=== PATIENT | male | born 1955 | race Caucasian/White ===

== ENCOUNTER → 2021-09-02 10:33 | Outpatient (CLI) | payer MEDICARE, BC, SELFPAY ==
--- NOTE | 2021-09-02 10:35 | DI.US.S_ITS ---
PROCEDURE: US SCROTUM INDICATIONS: SCROTAL SWELLING TECHNIQUE: Real-time scanning was performed of the scrotum and testicles, with image documentation. Color and pulse Doppler interrogation was performed of both testicles. COMPARISON: None. FINDINGS: Right: Testicle is normal in size at 4.8 x 2.1 x 2.6 cm, and homogenous in echotexture. Epididymis appears to be replaced by multiple cysts measures up to 1.7 x 1.6 x 2.4 cm in size. No hydrocele or varicoceles. Overlying scrotal skin is normal in thickness. Small rete testes is seen. Left: Testicle is normal in size at 3.8 x 2.4 x 2.7 cm, and homogeneous in echotexture. Epididymis appears to be replaced by multiple cysts measures up to 5.3 x 2.6 x 4.9 cm in size. No hydrocele or varicoceles. Overlying scrotal skin is normal in thickness. Rete testes is noted on the left side more prominent compared to right side with a 7 x 4 x 8 mm cyst seen. Doppler: Color and pulse Doppler demonstrate normal and symmetric arterial flow in both testicles. IMPRESSION: 1. No evidence of testicular torsion. No discrete testicular lesion. Bilateral rete testis is seen more prominent on the left side as above. No no hydrocele or varicocele. 2. Cystic replacement of normal epididymal parenchyma as described above. Dictated by: Eric Toth M.D. on 09/02/2021 at 14:18 Approved by: Eric Toth M.D. on 09/02/2021 at 14:20
[2021-09-02 12:34] LABS: Add Manual Diff / Slide Review NO; Basophils Absolute Auto 100 /uL (0-100); Eosinophils Absolute Auto 200 /uL (0-450); Eosinophils Percent Auto 4.9 % (2-4); Hemoglobin 14.5 g/dL (13.5-17.5); Lymphocytes Absolute Auto 1400 /uL (1100-4500); Lymphocytes Percent Auto 28.1 % (25-40); Mean Corpuscular HGB Conc 33.8 % (30-36); Mean Corpuscular Hemoglobin 30.2 PG (26-34); Mean Corpuscular Volume 89.3 fL (80-100); Monocytes Absolute Auto 300 /uL (0-900); Monocytes Percent Auto 5.5 % (3-14); Neutrophils Absolute Auto 3100 /uL (1500-7000); Neutrophils Percent Auto 60.5 % (50-75); Platelet Count 284 X10^3/uL (150-400); Red Blood Cell Count 4.81 X10^6/uL (4.5-5.9); White Blood Cell Count 5.1 X10^3/uL (4.5-11.0)
[2021-09-02 13:02] LABS: Alanine Aminotransferase 20 IU/L (<50); Albumin 4.7 g/dL (3.5-5.0); Albumin Globulin Ratio 1.9 (1.0-2.8); Alkaline Phosphatase 53 U/L (38-126); Aspartate Aminotransferase 21 IU/L (17-59); BUN Creatinine Ratio 13.2 (6-22); Bilirubin Total 0.9 mg/dL (0.2-1.3); Blood Urea Nitrogen 12 mg/dL (9-20); Calcium 9.4 mg/dL (8.4-10.2); Carbon Dioxide 29 mmol/L (22-32); Chloride 103 mmol/L (98-107); Cholesterol 205 mg/dL (140-199); Estimated Glomerular Filt Rate > 60.0 mL/min (>60); Globulin 2.5 g/dL (1.7-4.1); Glucose 93 mg/dL (80-110); HDL Cholesterol 60 mg/dL (40-60); HEMOLYSIS < 15 (0-50); LDL Cholesterol Calculated 114 mg/dL (<100); Potassium 4.4 mmol/L (3.4-5.1); Sodium 140 mmol/L (137-145); Total Protein 7.2 g/dL (6.3-8.2); Triglycerides 153 mg/dL (35-150)
[2021-09-02 13:20] LABS: Appearance Urine UA CLEAR; Bilirubin Urine UA NEGATIVE (NEGATIVE); Color Urine UA YELLOW; Glucose Urine UA NEGATIVE (Negative); Ketones Urine UA NEGATIVE (NEGATIVE); Leukocyte Esterase Urine UA NEGATIVE (NEGATIVE); Nitrite Urine UA NEGATIVE (Negative); Occult Blood Urine UA NEGATIVE (Negative); Protein Urine UA NEGATIVE (Negative); Urobilinogen Urine UA 0.2 E.U./dL (0.2); pH Urine UA 7.5 (4.5-8.0)
[2021-09-02 13:32] LABS: Bacteria Urine None Seen; Culture Indicated Urine Cult Not Indicated; RBC Urine None Seen (0-5/HPF); Urine Comments Microscopic Normal; WBC Urine None Seen (0-5/HPF)
[2021-09-02 13:36] LABS: TSH w/ Reflex to FT4 1.64 uIU/mL (0.47-4.68)
[2021-09-02 13:51] LABS: Vitamin B12 Reflex MMA if <400 553 pg/mL (239-931)
== END ==
PROVIDERS: PCP Family Medicine; Referring Provider Family Medicine; Visit Provider Family Medicine
DX: N49.2 Inflammatory disorders of scrotum (principal); N50.819 Testicular pain, unspecified; N50.3 Cyst of epididymis; E78.5 Hyperlipidemia, unspecified; R41.3 Other amnesia; G47.9 Sleep disorder, unspecified
CPT/HCPCS: 36415; 76870; 80053; 80061; 81001; 82607; 84443; 85025

== ENCOUNTER → 2022-03-20 09:15 | Outpatient (CLI) | payer MEDICARE, BC, SELFPAY ==
[2022-03-20 10:36] LABS: COVID19 -Nasal RAPID Negative (Negative)
== END ==
PROVIDERS: PCP Family Medicine; Visit Provider Surgery
DX: Z20.822 Contact with and (suspected) exposure to COVID-19 (principal); Z01.812 Encounter for preprocedural laboratory examination
CPT/HCPCS: 87635; C9803

== ENCOUNTER → 2022-05-28 15:54 | Outpatient (CLI) | payer MEDICARE, BC, SELFPAY ==
[2022-05-28 17:05] LABS: COVID19 -Nasal RAPID Negative (Negative)
== END ==
PROVIDERS: PCP Family Medicine; Visit Provider Urology
DX: N43.40 Spermatocele of epididymis, unspecified (principal); R31.0 Gross hematuria; N50.89 Other specified disorders of the male genital organs; K40.90 Unilateral inguinal hernia, without obstruction or gangrene, not specified as recurrent; R10.31 Right lower quadrant pain; Z20.822 Contact with and (suspected) exposure to COVID-19
CPT/HCPCS: 87635; 99214

== ENCOUNTER 2022-05-29 12:30 | Day surgery (SDC) | payer MEDICARE, BC, SELFPAY ==
[2022-05-28 07:51] VITALS: BMI 23.0
[2022-05-29] VITALS (7 sets, daily range): BP systolic 125–138; BP diastolic 70–88; PULSE 70–92; RESP 13–16; TEMP 36.3–37.3; O2SAT 92–98; BMI 23.1
--- NOTE | 2022-05-29 | PATH_ITS ---
[facility] Accession Number: [id number] . 01 Material submitted: . spermatic cord - LEFT SPERMATOCELE SAC . 01 Clinical history: . LEFT SPERMATOCELECTOMY / OPEN RIH REPAIR . 01 Diagnosis: Left Spermatocele Sac, Excision: Consistent with spermatocele. No evidence of neoplasm. MRV 06/02/2022 0831 Local . 01 Electronically signed: . Loco Mena MD, PhD, Pathologist NPI- [id number] . 01 Gross description: . Received in formalin, labeled with the patient's name and left spermatocele sac, and consists of two georges, membranous, translucent soft tissue fragments aggregating to 2.2 x 1.8 x 0.5 cm. The tissue fragments are smooth-walled with no excrescences or thickened identified. The specimen is submitted entirely in cassettes A1-A2. ([id number]) /FRR 05/30/2022 1133 Local . 01 Pathologist provided ICD-10: N43.40 . 01 CPT . 541885 Specimen Comment: A courtesy copy of this report has been sent to [phone] Performed at: 01 [facility] [address] [place] [address] [address], [place], [place] [id number] MD Stewart Duran MD Phone: [phone]
[2022-05-29] MEDS: LACTATED RINGERS 1,000 ML 42 ML IV (13:23)
--- NOTE | 2022-05-29 13:36 | PM.PREOP ---
Pre-operative Note COVID-19 Result date/Date tested (Pos, Neg/Pending): 05/28/22 Criteria for continued procedure: Delay expected to result in less-positive ultimate med/surg outcome and Non-surgical alternatives not available or appropriate per current SOC Interval Note History & Physical reviewed/Exam performed by Physician: Yes Changes to H&P: No
--- NOTE | 2022-05-29 15:18 | PM.HP.1 ---
History of Present Illness History of Present Illness Date Patient Seen: 05/29/22 Chief complaint: LEFT SPERMATOCELECTOMY & OPEN RIH REPAIR Narrative: 67-year-old man here for a elective open right inguinal hernia repair. No interval changes in health. Please refer to H&P from December 2021 for further detail. Patient History Medical History ADHD (attention deficit hyperactivity disorder) (~1954) Anesthesia Chicken pox (~1965) Chronic cough (~1954) Depression (~1954) Discomfort of right groin GERD (gastroesophageal reflux disease) Headache, migraine Hemorrhoid (~1999) History of squamous cell carcinoma of skin (~1989) Hyperlipidemia Low back pain Measles (~1963) Mumps (~1964) Neoplasm of uncertain behavior of skin Right inguinal hernia Right knee pain Scrotal sac enlargement Sleep apnea (~1997) Sleep disorder Spermatocele of epididymis TIA (transient ischemic attack) Vision disorder Surgical History Anesthesia History of inguinal hernia repair (~1983) History of knee surgery (~1965) History of tonsillectomy (~1964) S/P ACL repair (~2012) Family & Social History Family History Father Hypertension Mother Cancer Grandfather Diabetes mellitus History of heart disease Grandmother History of heart disease Grandfather History of heart disease Hyperlipidemia Hypertension Grandmother History of heart disease Social History: household members spouse Tobacco & Substance use: Smoking Status Never smoker alcohol intake current alcohol intake frequency 0-2 drinks per day Substance Use Type marijuana Meds Home Medications and Allergies Home Medications Medication Instructions Recorded Confirmed Type azelastine 137 mcg (0.1 %) nasal 1 spray intranasal BID 08/19/21 05/29/22 History spray aerosol cholecalciferol (vitamin D3) 50 50 mcg PO DAILY 08/19/21 05/29/22 History mcg (2,000 unit) capsule finasteride 1 mg tablet 1 mg PO DAILY #90 tabs 08/19/21 05/29/22 Rx fluticasone furoate 100 1 inh inhalation DAILY 08/19/21 05/28/22 History mcg/actuation blister powder for inhalation minoxidil 5 % topical foam See Rx Instructions .Route .COMPLEX 08/19/21 05/29/22 History multivitamin 1 tab PO DAILY 08/19/21 05/29/22 History zolpidem 10 mg tablet (Ambien) PO PRN insomnia 08/19/21 05/28/22 History rosuvastatin 20 mg tablet (Crestor) 20 mg PO DAILY #90 tabs 04/23/22 05/28/22 Rx esomeprazole magnesium 20 mg 20 mg PO DAILY 05/28/22 05/29/22 History capsule,delayed release oxycodone 5 mg tablet 5 mg PO Q4H PRN pain #30 tabs 05/28/22 05/29/22 Rx Prilosec See Rx Instructions .Route .COMPLEX 05/29/22 05/29/22 History rosuvastatin 20 mg tablet 20 mg PO 0800 05/29/22 05/29/22 History Allergies Allergy/AdvReac Type Severity Reaction Status Date / Time No Known Drug Allergies Allergy Verified 05/29/22 13:07 Exam Vital Signs (past 8 hours): - 05/29/22 13:24 Temperature 97.3 F L Pulse Rate 70 Respiratory Rate 16 Blood Pressure 135/77 Pulse Oximetry 98 Oxygen Delivery Method Room Air Oxygen Delivery Method Room Air Narrative Exam Narrative: General adult man alert oriented no acute distress Abdomen right inguinal hernia marked with my initials. Assessment & Plan Assessment and plan (1) Right inguinal hernia: Status: Acute Assessment & Plan narrative: 67-year-old man with a symptomatic right inguinal hernia here for elective open hernia repair. Over the operation was again discussed with the patient. Operative risks including bleeding, infection, recurrence, chronic pain damage to surrounding structures were discussed. His questions have been answered and he is in agreement with this plan. Time Spent With Patient Critical Care time: I spent a total of [] minutes of critical care time on this patient's care today; this time is exclusive of procedural time.
[2022-05-29] MEDS: CEFAZOLIN 2 GM/100 ML PREMIX 100 ML IV (15:45)
--- NOTE | 2022-05-29 15:52 | SUR.OPER ---
Patients cell phone and glasses placed in his belongings bag in pre-op area.
--- NOTE | 2022-05-29 16:05 | SUR.OPER ---
Supine on padded OR bed, head on pillow, arms secured on padded arm boards at <90 degrees abduction, legs uncrossed, safety belt at thigh, tape over blanket over lower legs.
[2022-05-29] MEDS: BACITRACIN 28 GM OINT 1 APPLIC TOP (17:00)
--- NOTE | 2022-05-29 17:07 | PM.OP.1 ---
Procedure & Clinicians Procedure: Left spermatocelectomy and flexible cystoscopy Same procedure as scheduled: Yes Indications: This is a very pleasant 67-year-old gentleman who has a left spermatocele had gross hematuria and has a right inguinal hernia. He presents this time for flexible cystoscopy, left spermatocelectomy and right inguinal hernia. The right inguinal hernia repair is to be done by Dr. Escobar and will be dictated under separate cover. Surgeon: Alexy Ac Click Yes if Unassisted: Yes Anesthesia Type: General Operative Notes Findings: At cystoscopy refill meatus was normal urethra is normal along its length. The sphincter was well coapted and the prostate showed moderate obstructive character. The ureteral orifices were normal position with clear efflux. The mucosa of the bladder was normal without papillary lesion fistula or other abnormality. There were no stones within the bladder. And no distinct cause for his gross hematuria was noted. At spermatocele ectomy. There there were actually 2 separate spermatoceles. One was bilobed and 1 was a single cyst. They contained fluid as would be expected clear to milky white fluid and no other significant abnormality was noted. Testis and cord structures were normal. The spermatoceles were removed in their entirety. Closure Type: primary Specimen(s): other (Spermatocele sac) Estimated Blood Loss (mL): 5 Procedure in detail: Procedure in detail: After informed consent was obtained, the patient was identified and brought to the operating room. He was then placed in the supine position on the table where anesthesia was induced to maintain. After adequate level of anesthesia the patient was shaved, prepped, draped and prepared for flexible cystoscopy and left spermatocelectomy. After prepping draping and ensuring an adequate level of anesthesia the flexible cystoscope was passed through the urethra prostate into the bladder under direct vision. Cystoscopy was performed including a retroflex maneuver. With the findings in hand the scope was removed and an 18 Sammarinese Martines catheter was passed into the bladder in the bladder was drained. At this point a transverse incision was made in the left hemiscrotum and carried down to the layers the dartos. The testis and spermatoceles were then delivered. The most inferior aspect of the spermatocele was opened and the sac teased off of the investing tissues. This was taken down and again became apparent was separate from another more cephalad bilobed spermatocele which then was dissected free from its investing tissues dissecting off parts of the epididymis and some blood vessels. This was taken down to its junction with the another portion of the epididymis. The base of the 1st spermatocele was tied off with a 2-0 Vicryl. And the sac excised this was then repeated on the 2nd spermatocele with a 2-0 2-0 Vicryl and the sac was excised. The investing layers were then reapproximated with a running 3-0 chromic. Points of bleeding were controlled with electrocautery. The cord was infiltrated with 0.25% plain Marcaine in the testis returned to the scrotum. The dartos was reapproximated with a running 2 0 Vicryl. The skin edges were infiltrated with 0.25% plain Marcaine and the skin it is reapproximating with interrupted vertical mattress of 2-0 chromic gut suture. The wound was cleaned bacitracin Telfa was applied gauze was applied and the patient was undraped. The patient then went on to be re-prepped and draped for right inguinal hernia and this will be dictated under separate cover by Dr. Escobar. Patient tolerated the procedure well and there were no complications. The patient will be dressed with bacitracin Telfa fluffs and scrotal support. Patient will follow-up in my office and proximally 10 days again there were no complications Complications: none Post-operative Condition: stable Disposition: other (Patient remained under general anaesthesia and went on to have right inguinal hernia repair.) Plan for aftercare: Patient is to be discharged to home and follow up my office in approximately 10 days
[2022-05-29] MEDS: BUPIVACAINE 0.25% (PF) VIAL 30 ML INJ (17:42)
--- NOTE | 2022-05-29 17:43 | SUR.OPER ---
Dr. Ac procedure ended at 170. patient re-prepped and draped sterile. Dr. Escobar procedure timeout at 1711 performed with OR team members lead by yadi Jay RN and procedure start time was 171.
--- NOTE | 2022-05-29 18:33 | PM.OP.1 ---
Operative Date/Time/Diagnoses Date of procedure: 05/29/22 Time of procedure: 18:33 Pre-op diagnosis: Right inguinal hernia Post-op diagnosis: same Procedure & Clinicians Procedure: Open right inguinal hernia repair with mesh Same procedure as scheduled: Yes Indications: Symptomatic reducible right inguinal hernia Surgeon: Arturo Juarez Yes if Unassisted: Yes Anesthesia Type: General Operative Notes Findings: direct floor inguinal hernia containing omentum. Small cord lipoma Specimen(s): none sent Estimated Blood Loss (mL): 20 Procedure in detail: The patient was placed supine on the table and bilateral lower extremity compression devices were applied. Anesthesia was induced they were intubated with an LMA and received Ancef. A time-out was performed. They were prepped and draped in sterile fashion. Dr. Ac then performed a left spermatocele repair. The right external inguinal ring and the anterior superior iliac crest were identified and marked. 1 finger breath above the inguinal ligament the skin was infiltrated with 0.25% bupivacaine. The skin incision was made here and the subcutaneous tissues were divided with electrocautery exposing the external oblique aponeurosis which was then opened along the direction of its fibers. Using blunt dissection the internal oblique aporneurosis was from the external oblique upper leaflet. Using a kittner the cord was carefully dissected away from the inguinal canal adjacent to the pubic tubercle. The cord including the vas deferens, testicular bloody supply, ilioguinal and genital nerve were encircled with a Rica drain. A large direct floor defect containing omentum was identified and it was reduced into the abdomen and the internal oblique aporneuorsis was approximated to the inguinal ligament with Ethibond suture to reapproximate the floor over a plug of mesh. The cremasteric fibers surrounding the cord were divided using electrocautery adjacent to the internal ring.. The vas deferens and the testicular vessels were preserved and protected. There was a small cord lipoma which was resected, there was no indirect hernia. I selected a 7x 15 cm lightweight Pro Loop hernia mesh. The inferior medial aspect of the mesh was anchored to insertion of the rectus muscle to the pubic tubercle such that there was approximately 2 cm of tubercle overlap with Ethibond and then was run continuously along the inferior edge of the mesh to the shelving edge of the inguinal ligament. Interrupted 3 0 Vicryl suture was used to anchor the superior aspect of the mesh to the conjoined tendon in several places. The tails were then reapproximated loosely around the spermatic cord. The tails of the mesh were then tucked under the external oblique aponeurosis. The repair was checked for hemostasis. The wound was irrigated with sterile saline. The external oblique aponeurosis was reapproximated in a running fashion using 3 0 Vicryl. The subcutaneous tissues were reapproximated with 3 0 Vicryl skin closed with 4 0 Monocryl followed by the application of Dermabond. At the end of the operation I ensured that both testicles were within the scrotum. The sponge instrument count at the end operation was correct. The patient emerged from anesthesia was extubated and transferred to the postoperative care unit in stable condition. Complications: none Post-operative Condition: stable Disposition: same day surgery
--- NOTE | 2022-05-29 19:13 | SUR.PHASEII ---
1900:Pt A&Ox4 denies any distress, dressings c/d/i, and ready to discharge home. Discharge instructions reviewed with patient and spouse in length, and both verbalize know how to get help if needed, written instructions given. IV DC'd intact, pt handoff to spouse who will transport pt home.
== END 2022-05-29 19:00 | disposition home or self-care (01) ==
PROVIDERS: Urology; PCP Family Medicine; Referring Provider Surgery; Visit Provider Surgery
PROC: 0TJB8ZZ Inspection of Bladder, Via Natural or Artificial Opening Endoscopic (ICD-10-PCS; CPT 52000; principal; 2022-05-29 14:15)
PROC: (CPT 49505; 2022-05-29 14:15)
PROC: (CPT 54840; 2022-05-29 14:15)
DX: K40.90 Unilateral inguinal hernia, without obstruction or gangrene, not specified as recurrent (principal); N43.40 Spermatocele of epididymis, unspecified; G47.33 Obstructive sleep apnea (adult) (pediatric); D17.6 Benign lipomatous neoplasm of spermatic cord
CPT/HCPCS: 49505; 54840; 82962; J0690; J1100; J2250; J2405; J2704; J3010

== ENCOUNTER → 2022-11-16 10:18 | Outpatient (CLI) | payer MEDICARE, BC, SELFPAY ==
[2022-11-16 10:58] LABS: Add Manual Diff / Slide Review NO; Basophils Absolute Auto 100 /uL (0-100); Basophils Percent Auto 1.1 % (0-2); Eosinophils Absolute Auto 200 /uL (0-450); Eosinophils Percent Auto 4.1 % (2-4); Hematocrit 42.3 % (41-53); Hemoglobin 14.1 g/dL (13.5-17.5); Lymphocytes Absolute Auto 1600 /uL (1100-4500); Lymphocytes Percent Auto 29.6 % (25-40); Mean Corpuscular HGB Conc 33.4 % (30-36); Mean Corpuscular Hemoglobin 29.3 PG (26-34); Mean Corpuscular Volume 87.5 fL (80-100); Monocytes Absolute Auto 400 /uL (0-900); Monocytes Percent Auto 7.5 % (3-14); Neutrophils Absolute Auto 3100 /uL (1500-7000); Neutrophils Percent Auto 57.7 % (50-75); Platelet Count 219 X10^3/uL (150-400); Red Blood Cell Count 4.83 X10^6/uL (4.5-5.9); Red Cell Distribution Width 13.7 % (11.6-14.8); White Blood Cell Count 5.4 X10^3/uL (4.5-11.0)
[2022-11-16 11:19] LABS: Alanine Aminotransferase 22 IU/L (<50); Albumin 4.2 g/dL (3.5-5.0); Albumin Globulin Ratio 1.7 (1.0-2.8); Alkaline Phosphatase 54 U/L (38-126); Aspartate Aminotransferase 20 IU/L (17-59); BUN Creatinine Ratio 23.1 (6-22); Bilirubin Total 0.7 mg/dL (0.2-1.3); Blood Urea Nitrogen 18 mg/dL (9-20); Carbon Dioxide 29 mmol/L (22-32); Chloride 105 mmol/L (98-107); Cholesterol 181 mg/dL (140-199); Estimated Glomerular Filt Rate > 60 mL/min (>60); Globulin 2.5 g/dL (1.7-4.1); Glucose 94 mg/dL (80-110); HDL Cholesterol 56 mg/dL (40-60); HEMOLYSIS < 15 (0-50); LDL Cholesterol Calculated 105 mg/dL (<100); Potassium 4.4 mmol/L (3.4-5.1); Sodium 139 mmol/L (137-145); Total Protein 6.7 g/dL (6.3-8.2); Triglycerides 98 mg/dL (35-150)
[2022-11-16 11:48] LABS: Prostate Specific Antigen Scrn 0.578 ng/mL (0.1-4.0)
== END ==
PROVIDERS: PCP Family Medicine; Referring Provider Family Medicine; Visit Provider Family Medicine
DX: Z00.00 Encounter for general adult medical examination without abnormal findings (principal); E78.2 Mixed hyperlipidemia; Z12.5 Encounter for screening for malignant neoplasm of prostate
CPT/HCPCS: 36415; 80053; 80061; 85025; G0103

== ENCOUNTER → 2022-12-29 19:03 | Outpatient (CLI) | payer MEDICARE, BC, SELFPAY | PROVIDERS: PCP Family Medicine; Visit Provider Student in an Organized Health Care Education/Training Program | DX: S90.859A Superficial foreign body, unspecified foot, initial encounter (principal) | CPT/HCPCS: 87070; 87075; 87147; 87205 ==

== ENCOUNTER → 2023-07-07 15:01 | Outpatient (CLI) | payer MEDICARE, OTHER, SELFPAY ==
--- NOTE | 2023-07-07 15:03 | DI.RAD.S_ITS ---
PROCEDURE: XR LUMBAR SPINE MIN 4V INDICATIONS: right side low back pain x 4 weeks TECHNIQUE: Three views of the lumbar spine. COMPARISON: None. FINDINGS: Bones: 5 nonrib-bearing vertebrae are present. There is normal bony alignment. No vertebral body compression fractures. No suspicious bony lesions. Moderate disc height loss at L4-5. Mild disc height loss at remaining levels. Soft tissues: Overlying bowel gas pattern is normal. No suspicious soft tissue calcifications. IMPRESSION: Mild to moderate, multilevel degenerative disc disease. Dictated by: Murali Grace M.D. on 07/07/2023 at 15:50 Approved by: Murali Grace M.D. on 07/07/2023 at 15:51
== END ==
PROVIDERS: PCP Family Medicine; Referring Provider Physician Assistant; Visit Provider Physician Assistant
DX: M51.36 Other intervertebral disc degeneration, lumbar region (principal); M54.50 Low back pain, unspecified
CPT/HCPCS: 72110

== ENCOUNTER → 2023-12-28 10:18 | Outpatient (CLI) | payer MEDICARE, OTHER, SELFPAY ==
[2023-12-28 10:54] LABS: Add Manual Diff / Slide Review NO; Basophils Absolute Auto 100 /uL (0-100); Basophils Percent Auto 0.9 % (0-2); Eosinophils Absolute Auto 200 /uL (0-450); Eosinophils Percent Auto 3.3 % (2-4); Hematocrit 42.4 % (41-53); Hemoglobin 14.4 g/dL (13.5-17.5); Lymphocytes Absolute Auto 1500 /uL (1100-4500); Lymphocytes Percent Auto 27.6 % (25-40); Mean Corpuscular HGB Conc 33.9 % (30-36); Mean Corpuscular Hemoglobin 29.6 PG (26-34); Mean Corpuscular Volume 87.2 fL (80-100); Monocytes Absolute Auto 400 /uL (0-900); Monocytes Percent Auto 7.4 % (3-14); Neutrophils Absolute Auto 3400 /uL (1500-7000); Neutrophils Percent Auto 60.8 % (50-75); Platelet Count 225 X10^3/uL (150-400); Red Blood Cell Count 4.86 X10^6/uL (4.5-5.9); Red Cell Distribution Width 13.1 % (11.6-14.8); White Blood Cell Count 5.6 X10^3/uL (4.5-11.0)
[2023-12-28 11:18] LABS: Alanine Aminotransferase 22 IU/L (<50); Albumin 4.4 g/dL (3.5-5.0); Albumin Globulin Ratio 1.6 (1.0-2.8); Alkaline Phosphatase 55 U/L (38-126); Aspartate Aminotransferase 24 IU/L (17-59); BUN Creatinine Ratio 20.9 (6-22); Bilirubin Total 1.1 mg/dL (0.2-1.3); Blood Urea Nitrogen 19 mg/dL (9-20); Calcium 9.2 mg/dL (8.4-10.2); Carbon Dioxide 28 mmol/L (22-32); Chloride 109 mmol/L (98-107); Cholesterol 189 mg/dL (140-199); Estimated Glomerular Filt Rate > 60 mL/min (>60); Globulin 2.8 g/dL (1.7-4.1); Glucose 89 mg/dL (80-110); HDL Cholesterol 52 mg/dL (40-60); HEMOLYSIS < 15 (0-50); LDL Cholesterol Calculated 93 mg/dL (<100); Potassium 4.2 mmol/L (3.4-5.1); Sodium 140 mmol/L (137-145); Total Protein 7.2 g/dL (6.3-8.2); Triglycerides 220 mg/dL (35-150)
[2023-12-28 11:48] LABS: Prostate Specific Antigen Scrn 0.742 ng/mL (0.1-4.0)
[2023-12-28 11:50] LABS: TSH w/ Reflex to FT4 2.05 uIU/mL (0.47-4.68)
[2023-12-28 13:30] LABS: Creatinine Urine Random 187.5 mg/dL
[2023-12-28 13:32] LABS: Microalbumi Creatinin Ratio Ur 4.2 ug/mg CR (<30); Microalbumin Urine Random 0.8 mg/dL (0-1.6)
[2023-12-29 09:16] LABS: Apolipoprotein B 104 mg/dL (<90)
== END ==
PROVIDERS: PCP Family Medicine; Referring Provider Family Medicine; Visit Provider Family Medicine
DX: Z00.00 Encounter for general adult medical examination without abnormal findings (principal); E78.5 Hyperlipidemia, unspecified; Z12.5 Encounter for screening for malignant neoplasm of prostate; G47.30 Sleep apnea, unspecified; M54.50 Low back pain, unspecified
CPT/HCPCS: 36415; 80053; 80061; 82043; 82172; 82570; 84443; 85025; G0103

== ENCOUNTER 2024-02-18 13:26 | Day surgery (SDC) | payer MEDICARE, OTHER, SELFPAY ==
--- NOTE | 2024-02-18 | PATH_ITS ---
[facility] Accession Number: [id number] No. of containers..01 Tissue . 01 Material submitted: . esophagus, E-G Junction - GE JUNCTION . 01 Diagnosis: GE JUNCTION: Gastroesophageal junction mucosa with mild chronic inflammation. No goblet cell metaplasia, dysplasia, or malignancy identified. [facility] 02/25/2024 1112 Local . 01 Electronically signed: . Stewart Duran MD, Pathologist NPI- [id number] . 01 Gross description: . Received in formalin with two identifiers and GE junction, are two georges soft tissue fragments, 0.4 cm each in greatest dimension. Submitted in A1. ([id number]) /MRV 02/25/2024 1112 Local . 01 Pathologist provided ICD-10: K20.90 . 01 CPT . 723822 Specimen Comment: A courtesy copy of this report has been sent to [phone] Performed at: 01 [facility] [address] [place] [address], [place], [place] [id number] MD Stewart Duran MD Phone: [phone]
[2024-02-18] MEDS: LACTATED RINGERS 1,000 ML 42 ML IV (14:08)
[2024-02-18 14:14] VITALS: BP 120/66; PULSE 67; RESP 18; TEMP 36.3; O2SAT 97
--- NOTE | 2024-02-18 14:20 | PM.PREOP ---
Pre-operative Note Interval Note History & Physical reviewed/Exam performed by Physician: Yes Changes to H&P: No
[2024-02-18 14:40] VITALS: BP 101/62; PULSE 77; RESP 19; TEMP 36.6; O2SAT 92
--- NOTE | 2024-02-18 14:43 | P.OP.EGD_ITS ---
Operative Date/Time/Diagnoses Date of procedure: 02/18/24 Time of procedure: 14:43 Pre-op diagnosis: GERD Procedure & Clinicians Study performed: Esophagogastroduodenoscopy Same procedure as scheduled: Yes Indications: Chronic GERD Surgeon: Arturo Escobar Procedure Notes Procedure in detail: The history and physical was performed/updated and the patient is ASA class is 2. The procedure was discussed in detail with the patient. Potential risks complications including infection, bleeding, missed diagnosis, perforation, need for surgery, and were explained. Their questions were answered and informed consent was obtained. Patient placed in left lateral decubitus position. Time out was performed. Procedural sedation was administered by Anesthesia. A bite block was placed. the scope was inserted into the mouth and advanced through the esophagus and i nto the stomach. The pylorus was intubated and the duodenum was examined to the 2nd portion. The scope was then withdrawn into the stomach and was retroflexed. The stomach was decompressed and scope was withdrawn slowly through the esophagus. FINDINGS -mild gastritis -no overt signs of Rivera's esophagus. -biopsy of the GE junction at 38 cm performed with forceps. The patient tolerated the procedure well and will be discharged when they meet criteria. Specimen(s): other (GE junction) Impression: Normal upper endoscopy Post-procedure Plan for aftercare: We will notify with biopsy results Continue Nexium as written Disposition: same day surgery
[2024-02-18 14:45] VITALS: BP 106/73; PULSE 69; RESP 12; O2SAT 96
[2024-02-18 14:51] VITALS: BP 119/75; PULSE 77; RESP 14; O2SAT 95
[2024-02-18 14:56] VITALS: BP 123/71; PULSE 74; RESP 18; O2SAT 96
== END 2024-02-18 15:07 | disposition home or self-care (01) ==
PROVIDERS: PCP Family Medicine; Referring Provider Surgery; Visit Provider Surgery
PROC: 0DJ08ZZ Inspection of Upper Intestinal Tract, Via Natural or Artificial Opening Endoscopic (ICD-10-PCS; CPT 43239; principal; 2024-02-18 14:15)
DX: K21.9 Gastro-esophageal reflux disease without esophagitis (principal); K29.50 Unspecified chronic gastritis without bleeding
CPT/HCPCS: 43239; J2704

== ENCOUNTER → 2024-03-31 15:47 | Outpatient (CLI) | payer MEDICARE, OTHER, SELFPAY ==
[2024-03-31 17:39] LABS: Alanine Aminotransferase 21 IU/L (<50); Albumin 4.2 g/dL (3.5-5.0); Alkaline Phosphatase 58 U/L (38-126); Aspartate Aminotransferase 21 IU/L (17-59); BUN Creatinine Ratio 18.1 (6-22); Bilirubin Total 0.6 mg/dL (0.2-1.3); Blood Urea Nitrogen 15 mg/dL (9-20); Carbon Dioxide 27 mmol/L (22-32); Chloride 108 mmol/L (98-107); Cholesterol 178 mg/dL (140-199); Estimated Glomerular Filt Rate > 60 mL/min (>60); Globulin 2.1 g/dL (1.7-4.1); Glucose 90 mg/dL (80-110); HDL Cholesterol 55 mg/dL (40-60); HEMOLYSIS < 15 (0-50); LDL Cholesterol Calculated 53 mg/dL (<100); Potassium 4.7 mmol/L (3.4-5.1); Sodium 138 mmol/L (137-145); Total Protein 6.3 g/dL (6.3-8.2); Triglycerides 352 mg/dL (35-150)
[2024-03-31 18:29] LABS: Vitamin B12 524 pg/mL (239-931)
[2024-04-01 08:18] LABS: Apolipoprotein B 90 mg/dL (<90)
[2024-04-01 10:17] LABS: Appearance Urine UA CLEAR; Bilirubin Urine UA NEGATIVE (NEGATIVE); Color Urine UA YELLOW; Glucose Urine UA NEGATIVE (Negative); Ketones Urine UA NEGATIVE (NEGATIVE); Leukocyte Esterase Urine UA NEGATIVE (NEGATIVE); Nitrite Urine UA NEGATIVE (Negative); Occult Blood Urine UA NEGATIVE (Negative); Protein Urine UA NEGATIVE (Negative); Urobilinogen Urine UA 0.2 E.U./dL (0.2)
[2024-04-01 10:33] LABS: Bacteria Urine None Seen; Culture Indicated Urine Cult Not Indicated; RBC Urine 0-1/HPF (0-5/HPF); Squamous Epithelial Cell Urine 0-1 /HPF (0-5/HPF); Urine Volume 10mL (spun); WBC Urine None Seen (0-5/HPF)
== END ==
PROVIDERS: PCP Family Medicine; Referring Provider Family Medicine; Visit Provider Family Medicine
DX: Z00.00 Encounter for general adult medical examination without abnormal findings (principal); E78.2 Mixed hyperlipidemia; R41.3 Other amnesia; R39.9 Unspecified symptoms and signs involving the genitourinary system
CPT/HCPCS: 36415; 80053; 80061; 81001; 82172; 82607

== ENCOUNTER → 2025-01-08 10:55 | Outpatient (CLI) | payer MEDICARE, OTHER, SELFPAY ==
[2025-01-09 09:40] LABS: Rubeola Measles IgG > 300.0 AU/mL (Immune >16.4)
== END ==
PROVIDERS: PCP Family Medicine; Referring Provider Family Medicine; Visit Provider Family Medicine
DX: Z01.84 Encounter for antibody response examination (principal)
CPT/HCPCS: 36415; 86735; 86762; 86765

== ENCOUNTER → 2025-01-13 11:49 | Outpatient (CLI) | payer MEDICARE, OTHER, SELFPAY ==
[2025-01-15 12:08] LABS: Fecal Immunochemical Test Negative (Negative)
== END ==
LOC: LAB 11:50
PROVIDERS: PCP Family Medicine; Referring Provider Family Medicine; Visit Provider Family Medicine
DX: Z12.11 Encounter for screening for malignant neoplasm of colon (principal)
CPT/HCPCS: 82274

== ENCOUNTER → 2025-02-19 08:01 | Outpatient (CLI) | payer MEDICARE, OTHER, SELFPAY ==
[2025-02-19 08:46] LABS: Add Manual Diff / Slide Review NO; Basophils Absolute Auto 0 /uL (0-100); Basophils Percent Auto 0.8 % (0-2); Eosinophils Absolute Auto 200 /uL (0-450); Eosinophils Percent Auto 2.8 % (2-4); Hemoglobin 14.6 g/dL (13.5-17.5); Lymphocytes Absolute Auto 1300 /uL (1100-4500); Mean Corpuscular HGB Conc 33.9 % (30-36); Mean Corpuscular Hemoglobin 30.4 PG (26-34); Mean Corpuscular Volume 89.6 fL (80-100); Monocytes Absolute Auto 400 /uL (0-900); Monocytes Percent Auto 6.6 % (3-14); Neutrophils Absolute Auto 4000 /uL (1500-7000); Neutrophils Percent Auto 67.8 % (50-75); Platelet Count 238 X10^3/uL (150-400); Red Blood Cell Count 4.79 X10^6/uL (4.5-5.9); Red Cell Distribution Width 13.2 % (11.6-14.8); White Blood Cell Count 5.9 X10^3/uL (4.5-11.0)
[2025-02-19 09:14] LABS: Alanine Aminotransferase 23 IU/L (<50); Albumin 4.6 g/dL (3.5-5.0); Albumin Globulin Ratio 2.3 (1.0-2.8); Alkaline Phosphatase 54 U/L (38-126); Aspartate Aminotransferase 23 IU/L (17-59); BUN Creatinine Ratio 19.8 (6-22); Blood Urea Nitrogen 20 mg/dL (9-20); Carbon Dioxide 27 mmol/L (22-32); Chloride 104 mmol/L (98-107); Cholesterol 216 mg/dL (140-199); Estimated Glomerular Filt Rate > 60 mL/min (>60); Glucose 98 mg/dL (70-99); HDL Cholesterol 53 mg/dL (40-60); HEMOLYSIS < 15 (0-50); LDL Cholesterol Calculated 120 mg/dL (<100); Potassium 4.7 mmol/L (3.4-5.1); Sodium 138 mmol/L (137-145); Total Protein 6.6 g/dL (6.3-8.2); Triglycerides 214 mg/dL (35-150)
[2025-02-19 09:22] LABS: Creatinine Urine Random 98.98 mg/dL
[2025-02-19 09:29] LABS: Microalbumin Urine Random 1.1 mg/dL (0-1.6)
[2025-02-19 09:38] LABS: TSH w/ Reflex to FT4 2.25 uIU/mL (0.47-4.68)
[2025-02-19 09:41] LABS: Prostate Specific Antigen Scrn 0.782 ng/mL (0.1-4.0)
== END ==
PROVIDERS: PCP Family Medicine; Referring Provider Family Medicine; Visit Provider Family Medicine
DX: G31.84 Mild cognitive impairment of uncertain or unknown etiology (principal); E78.5 Hyperlipidemia, unspecified; Z12.5 Encounter for screening for malignant neoplasm of prostate; G47.30 Sleep apnea, unspecified; R73.9 Hyperglycemia, unspecified
CPT/HCPCS: 36415; 80053; 80061; 82043; 82570; 84443; 85025; G0103

== ENCOUNTER → 2025-03-06 16:21 | Outpatient (CLI) | payer MEDICARE, OTHER, SELFPAY ==
[2025-03-06 17:43] LABS: Add Manual Diff / Slide Review NO; Basophils Absolute Auto 100 /uL (0-100); Basophils Percent Auto 0.9 % (0-2); Eosinophils Absolute Auto 200 /uL (0-450); Eosinophils Percent Auto 2.5 % (2-4); Hemoglobin 15.2 g/dL (13.5-17.5); Lymphocytes Absolute Auto 1900 /uL (1100-4500); Lymphocytes Percent Auto 29.2 % (25-40); Mean Corpuscular Hemoglobin 29.9 PG (26-34); Mean Corpuscular Volume 90.4 fL (80-100); Monocytes Absolute Auto 500 /uL (0-900); Monocytes Percent Auto 7.3 % (3-14); Neutrophils Absolute Auto 3900 /uL (1500-7000); Neutrophils Percent Auto 60.1 % (50-75); Platelet Count 230 X10^3/uL (150-400); Red Blood Cell Count 5.09 X10^6/uL (4.5-5.9); Red Cell Distribution Width 13.4 % (11.6-14.8); White Blood Cell Count 6.5 X10^3/uL (4.5-11.0)
[2025-03-06 18:00] LABS: Alanine Aminotransferase 23 IU/L (<50); Albumin 4.8 g/dL (3.5-5.0); Albumin Globulin Ratio 2.2 (1.0-2.8); Alkaline Phosphatase 57 U/L (38-126); Aspartate Aminotransferase 22 IU/L (17-59); Bilirubin Total 0.7 mg/dL (0.2-1.3); Blood Urea Nitrogen 13 mg/dL (9-20); Calcium 9.9 mg/dL (8.4-10.2); Carbon Dioxide 25 mmol/L (22-32); Chloride 105 mmol/L (98-107); Estimated Glomerular Filt Rate > 60 mL/min (>60); Globulin 2.2 g/dL (1.7-4.1); Glucose 92 mg/dL (70-99); HEMOLYSIS < 15 (0-50); Potassium 4.5 mmol/L (3.4-5.1); Sodium 140 mmol/L (137-145)
[2025-03-07 11:58] LABS: Lipase 140 U/L (23-300)
== END ==
PROVIDERS: PCP Family Medicine; Referring Provider Physician Assistant; Visit Provider Physician Assistant
DX: R10.13 Epigastric pain (principal)
CPT/HCPCS: 36415; 80053; 83690; 85025

== ENCOUNTER → 2025-04-11 16:41 | Outpatient (CLI) | payer MEDICARE, OTHER, SELFPAY ==
[2025-04-11 17:28] LABS: Add Manual Diff / Slide Review NO; Basophils Absolute Auto 100 /uL (0-100); Eosinophils Absolute Auto 200 /uL (0-450); Hematocrit 44.8 % (41-53); Hemoglobin 14.9 g/dL (13.5-17.5); Lymphocytes Absolute Auto 1800 /uL (1100-4500); Lymphocytes Percent Auto 35.1 % (25-40); Mean Corpuscular HGB Conc 33.3 % (30-36); Mean Corpuscular Hemoglobin 29.9 PG (26-34); Mean Corpuscular Volume 89.8 fL (80-100); Monocytes Absolute Auto 400 /uL (0-900); Monocytes Percent Auto 8.5 % (3-14); Neutrophils Absolute Auto 2700 /uL (1500-7000); Neutrophils Percent Auto 51.4 % (50-75); Platelet Count 246 X10^3/uL (150-400); Red Blood Cell Count 4.99 X10^6/uL (4.5-5.9); Red Cell Distribution Width 13.4 % (11.6-14.8); White Blood Cell Count 5.2 X10^3/uL (4.5-11.0)
[2025-04-11 17:49] LABS: Alanine Aminotransferase 24 IU/L (<50); Albumin 4.6 g/dL (3.5-5.0); Alkaline Phosphatase 56 U/L (38-126); Aspartate Aminotransferase 24 IU/L (17-59); BUN Creatinine Ratio 15.3 (6-22); Bilirubin Total 0.8 mg/dL (0.2-1.3); Blood Urea Nitrogen 15 mg/dL (9-20); Calcium 9.8 mg/dL (8.4-10.2); Carbon Dioxide 27 mmol/L (22-32); Chloride 104 mmol/L (98-107); Estimated Glomerular Filt Rate > 60 mL/min (>60); Globulin 2.3 g/dL (1.7-4.1); Glucose 90 mg/dL (70-99); HEMOLYSIS < 15 (0-50); Potassium 4.6 mmol/L (3.4-5.1); Sodium 139 mmol/L (137-145); Total Protein 6.9 g/dL (6.3-8.2)
== END ==
PROVIDERS: PCP Family Medicine; Referring Provider Family Medicine; Visit Provider Physician Assistant
DX: R10.13 Epigastric pain (principal)
CPT/HCPCS: 36415; 80053; 85025

== ENCOUNTER → 2025-04-19 11:51 | Outpatient (CLI) | payer MEDICARE, OTHER, SELFPAY ==
--- NOTE | 2025-04-19 11:52 | DI.CT.S_ITS ---
PROCEDURE: CT ABDOMEN PELVIS W CON INDICATIONS: chronic aching pain upper abdomen, does not feel like GERD TECHNIQUE: After the administration of intravenous contrast, axial sections acquired from the lung bases to the pubic symphysis. Coronal and sagittal reformats were performed. For radiation dose reduction, the following was used: automated exposure control, adjustment of mA and/or kV according to patient size. COMPARISON: None. FINDINGS: Image quality: Diagnostic Lower chest: Unremarkable lung bases. Normal heart size. Liver: Unremarkable Gallbladder and biliary system: Unremarkable gallbladder. Nondilated biliary system Pancreas: No ductal dilation Spleen: Nonenlarged Adrenals: No discrete nodules Kidneys: There is a large left renal cyst without solid enhancing component measuring up to 9.2 x 5.5 cm. This partially herniates into the renal pelvis. No hydronephrosis or obstructing calcified stone. No solid renal mass Vessels and lymph nodes: The main portal vein appears patent. No abdominal aortic aneurysm. No enlarged lymph nodes by size criteria. Bowel and peritoneum: No acute small bowel obstruction. Colonic diverticulosis. Nondilated appendix. Moderate colonic fecal loading Body wall: Unremarkable Pelvis: Bladder is unremarkable. Heterogeneous prostate, not well assessed on this study Bones: No aggressive appearing osseous abnormality. IMPRESSION: No acute abdominal pelvic abnormality. No small bowel obstruction. There is moderate colonic fecal loading. Large left renal cyst measuring up to 9.2 cm in long axis, partially herniating in the renal pelvis. No solid enhancing soft tissue nodule. No hydronephrosis. Other findings above. Dictated by: Leon Carcamo M.D. on 04/19/2025 at 13:48 Approved by: Leon Carcamo M.D. on 04/19/2025 at 13:52
== END ==
PROVIDERS: PCP Family Medicine; Referring Provider Physician Assistant; Visit Provider Physician Assistant
DX: N28.1 Cyst of kidney, acquired (principal); R10.13 Epigastric pain; K57.90 Diverticulosis of intestine, part unspecified, without perforation or abscess without bleeding
CPT/HCPCS: 74177; Q9967

== ENCOUNTER → 2025-05-24 09:32 | Outpatient (CLI) | payer MEDICARE, OTHER, SELFPAY ==
[2025-05-24 10:01] LABS: Appearance Urine UA CLEAR; Bilirubin Urine UA NEGATIVE (NEGATIVE); Color Urine UA YELLOW; Glucose Urine UA NEGATIVE (Negative); Ketones Urine UA NEGATIVE (NEGATIVE); Leukocyte Esterase Urine UA NEGATIVE (NEGATIVE); Nitrite Urine UA NEGATIVE (Negative); Occult Blood Urine UA NEGATIVE (Negative); Protein Urine UA NEGATIVE (Negative); Specific Gravity Urine UA >=1.030 (1.000-1.035); Urobilinogen Urine UA 1.0 E.U./dL (0.2); pH Urine UA 5.5 (4.5-8.0)
[2025-05-24 10:10] LABS: Culture Indicated Urine Cult Not Indicated
== END ==
PROVIDERS: PCP Family Medicine; Referring Provider Family Medicine; Visit Provider Family Medicine
DX: N28.1 Cyst of kidney, acquired (principal); R39.9 Unspecified symptoms and signs involving the genitourinary system
CPT/HCPCS: 81001